=== PATIENT | female | born 1980 | race Caucasian/White ===

== ENCOUNTER 2018-12-21 22:44 | Emergency (ER) | payer MEDICAID ==
[2018-12-22] MEDS: LORAZEPAM 0.5 MG TAB PO (01:15)
== END 2018-12-22 01:42 | disposition home or self-care (01) ==
LOC: FTE 22:44
DX: F41.9 Anxiety disorder, unspecified (principal); Z21 Asymptomatic human immunodeficiency virus [HIV] infection status
CPT/HCPCS: 81025; 99283